=== PATIENT | male | born 1955 | race Caucasian/White ===

== ENCOUNTER 2024-12-25 14:09 | Emergency (ER) | payer MEDICARE, MEDICAID, SELFPAY ==
--- NOTE | 2024-12-25 14:18 | EKG_ITS ---
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
--- NOTE | 2024-12-25 14:18 | XR_ITS ---
Examination: AP chest single view Technique: Sitting AP portable chest single view Date and time: December 25, 2024, 1431 hrs. Indications: Chest pain shortness of breath beginning 2 days ago. Findings: Normal heart size No pneumonia or pulmonary edema. Mild osteopenia Impression: No active disease.
--- NOTE | 2024-12-25 14:19 | PD.EDRME ---
Rapid Medical Screening Exam E Arrival date/time: 12/25/24 14:09 Chief Complaint: Weakness Time Seen by Provider: 12/25/24 14:24 Vital signs: Vital Signs Temperature 97.9 F 12/25/24 14:27 Pulse Rate 95 12/25/24 14:27 Respiratory Rate 18 12/25/24 14:27 Blood Pressure 133/88 H 12/25/24 14:27 Pulse Oximetry (%) 98 12/25/24 14:27 Oxygen Delivery Method Room Air 12/25/24 14:27 [facility] Narrative: Here with a 2 day history of short breathe. Has a history of STEMI. Work up initiated, medical screening exam complete.
[2024-12-25 14:27] VITALS: BP 133/88; PULSE 95; RESP 18; TEMP 36.6; O2SAT 98
[2024-12-25 15:02] LABS: Basophils # (Auto) 0.1 Thou/mm3 (0.0-0.2); Basophils % (Auto) 1 % (0-2.5); Eosinophils # (Auto) 0.1 Thou/mm3 (0.0-0.5); Eosinophils % (Auto) 1 % (0-10); Hematocrit 27.8 % (41.0-53.0); Immature Granulocytes Auto 0.15 Thou/mm3 (0.00-0.00); Lymphocytes # (Auto) 2.0 Thou/mm3 (1.0-4.8); Lymphocytes % (Auto) 14 % (10-50); Mean Corpuscular HGB Conc 30.6 g/dl (31.0-37.0); Mean Corpuscular Hemoglobin 22.7 pg (25.0-35.0); Mean Corpuscular Volume 74 fL (80-100); Monocytes # (Auto) 1.0 Thou/mm3 (0.0-0.8); Monocytes % (Auto) 7 % (0-12); Neutrophils # (Auto) 11.2 Thou/mm3 (1.8-7.7); Neutrophils % (Auto) 77 % (37-80); Nucleated Red Blood Cell # 0.03 Thou/mm3 (0.00-0.00); Nucleated Red Blood Cell % 0 /100 WBC (0); Platelet Count 508 Thou/mm3 (140-440); RDW Standard Deviation 52.2 fL (35.1-43.9); Red Blood Count 3.74 Miln/mm3 (4.50-5.90); White Blood Count 14.5 Thou/mm3 (3.8-10.6)
[2024-12-25 15:12] LABS: Hemoglobin 8.5 g/dL (13.5-16.0)
[2024-12-25 15:29] LABS: B-Type Natriuretic Peptide 126 pg/mL (0-100)
[2024-12-25 16:08] LABS: Alanine Aminotransferase 14 U/L (10-49); Albumin, Serum 3.8 gm/dL (3.4-4.8); Albumin/Globulin Ratio 1.0 (1.2-2.2); Alkaline Phosphatase 159 U/L (46-116); Anion Gap 15 (7-16); Aspartate Amino Transferase 24 U/L (0-34); BUN/Creatinine Ratio 9 Ratio (12-20); Bilirubin,Total 0.4 mg/dL (0.3-1.2); Blood Urea Nitrogen 11 mg/dL (9-23); Calcium 8.7 mg/dL (8.3-10.6); Calcium (Corrected) 8.9 mg/dL (8.5-10.1); Carbon Dioxide 18.4 mMol/L (20.0-31.0); Chloride 103 mMol/L (98-107); Creatinine (Component) 1.2 mg/dL (0.6-1.3); Globulin 3.7 gm/dL (2.3-3.5); Glucose 318 mg/dL (74-106); Magnesium 2.3 mg/dL (1.6-2.6); Osmolality,Calculated 283 (275-295); Potassium 3.4 mMol/L (3.4-5.1); Sodium 136 mMol/L (136-145); Total Protein 7.5 gm/dL (5.7-8.2); Troponin I < 0.020 ng/mL (0.0-0.045); eGFR > 60 See Note
[2024-12-25 17:14] VITALS: BP 150/90; PULSE 97; RESP 18; TEMP 36.7; O2SAT 98
--- NOTE | 2024-12-25 18:01 | PD.EDWEAK ---
ED Weakness RME/HPI General Chief complaint: Weakness Stated complaint: Weak, SOB, dizzy Time Seen by Provider: 12/25/24 14:24 Source: patient Arrival date/time: 12/25/24 14:09 Mode of arrival: ambulatory Limitations: no limitations RME / HPI RME / HPI Narrative: Here with a 2 day history of short breathe. This was much worse this morning. Has a history of STEMI. He denies abdominal pain, nausea, vomiting. Has no lower leg edema. Has had no recent travel or surgery. Has had no syncopal episodes or falls. He has no other acute complaints. Related Data Home Medications ?Medication ?Instructions ?Recorded ?Confirmed atorvastatin 80 mg tablet 80 mg PO QPM 10/25/22 06/06/23 carvedilol 3.125 mg tablet 3.125 mg PO BID 10/25/22 06/06/23 gabapentin 600 mg tablet 600 mg PO TID 10/25/22 06/06/23 glipizide 10 mg tablet 10 mg PO QDAY 10/25/22 06/06/23 lisinopril 10 mg tablet 10 mg PO QDAY 10/25/22 06/06/23 naproxen 500 mg tablet (Naprosyn) 500 mg PO BID 10/25/22 06/06/23 omeprazole 40 mg capsule,delayed 40 mg PO QDAY 10/25/22 06/06/23 release sitagliptin phosphate 50 1 tab PO BID 10/25/22 06/06/23 mg-metformin 1,000 mg tablet (Janumet) ticagrelor 90 mg tablet (Brilinta) 90 mg PO BID 10/25/22 06/06/23 aspirin 81 mg tablet,delayed 81 mg PO QDAY 04/25/23 06/06/23 release Previous Rx's ?Medication ?Instructions ?Recorded levofloxacin 750 mg tablet 750 mg PO Q24H #6 tabs 12/25/24 Allergies Allergy/AdvReac Type Severity Reaction Status Date / Time Penicillins Allergy Unknown Rash Verified 12/25/24 14:14 Review of Systems Review of Systems Systems Reviewed: All systems reviewed, normal except as documented ED Exam General Limitations: Present no limitations General appearance: Present alert and in no apparent distress Head Head exam: Present atraumatic Eye Eye exam: Present normal appearance, PERRL and EOMI ENT ENT exam: Present normal exam, normal oropharynx and mucous membranes moist Neck Neck exam: Present normal inspection, full ROM and trachea midline Chest Chest inspection: Present normal inspection and symmetric chest wall rise Respiratory Respiratory exam: Present normal lung sounds bilaterally Cardiovascular Cardiovascular exam: Present regular rate, normal rhythm and normal heart sounds Abdominal Exam Abdominal exam: Present soft and normal bowel sounds Extremities Exam Extremities exam: Present normal inspection and full ROM Back Exam Back exam: Present normal inspection and full ROM Neurological Exam Neurological exam: Present alert and oriented X3 Psychiatric Psychiatric exam: Present normal affect and normal mood Skin Skin exam: Present warm, dry, intact and normal color Course Quality Measures none Orders Category Date Time Status Bedside COVID-19 Antigen Test NOW Care 12/25/24 17:37 Active Bedside Influenza A&B Antigen Test NOW Care 12/25/24 17:[address] Screening NOW Care 12/25/24 19:[address] Screening X1 Care 12/25/24 19:41 Completed EKG (ED ONLY) *Do not use* NOW Care 12/25/24 14:[address] angio chest Stat Exams 12/25/24 19:41 Completed EKG (ED Only) Stat Exams 12/25/24 14:18 Draft XR chest 2V Stat Exams 12/25/24 14:18 Completed BNP [B-Type Natriuretic Peptide] Stat Lab 12/25/24 14:45 Completed CBC Stat Lab 12/25/24 14:45 Completed CMP [Comprehensive Metabolic Panel] Stat Lab 12/25/24 14:52 Completed D-Dimer Stat Lab 12/25/24 18:48 Completed Mag [Magnesium] Stat Lab 12/25/24 14:52 Completed Troponin I Stat Lab 12/25/24 14:52 Completed UA, C/S IF [Urinalysis, C/S if Indicated] Stat Lab 12/25/24 20:21 Completed Albuterol* Inhaler [Proventil Inhaler] Med 12/25/24 21:55 Once 2 puff INH X1 ONE Levofloxacin [Levaquin] Med 12/25/24 21:55 Once 750 mg PO X1 ONE Morphine Inj Med 12/25/24 19:41 Discontinued 2 mg IVP X1 ONE Vital Signs Vital signs: Vital Signs Temperature 97.9 F 12/25/24 14:27 Pulse Rate 95 12/25/24 14:27 Respiratory Rate 18 12/25/24 14:27 Blood Pressure 133/88 H 12/25/24 14:27 Pulse Oximetry (%) 98 12/25/24 14:27 Oxygen Delivery Method Room Air 12/25/24 14:27 Weakness MDM Narrative MDM Narrative:: Here with a 2 day history of short breathe. This was much worse this morning. Has a history of STEMI. He denies abdominal pain, nausea, vomiting. Has no lower leg edema. Has had no recent travel or surgery. Has had no syncopal episodes or falls. He has no other acute complaints. Patient's vital signs are stable and he had no significant tachypnea on exam. Lung tones are clear bilaterally. Initial workup included CBC, metabolic panel, troponin, EKG, and chest x-ray which were all unremarkable. A D-dimer was then added to the workup, this was elevated, and a CT of the chest was obtained. No pulmonary emboli was noted however a left base pneumonia was identified. Patient was started on Levaquin and given an inhaler. He was visited by our respiratory therapist who discussed pulmonary toiletry. His vital signs remained stable. I do believe he be discharged for outpatient follow-up. He agrees to follow closely with his primary clinic this following week. Continue therapies including Levaquin, albuterol MDI, and pulmonary toiletry. He was given an incentive spirometry to use. He will return as needed for any worsening emergent changes at any time. Patient data External records reviewed:: None Clinical information provided by:: patient Social determinants that could affect healthcare access:: none Patient has the following chronic illnesses:: Diabetes, hypertension How is presenting disease/condition affected by chronic disease/condition?: uneffected by Evaluation data The following diagnostics were reviewed and interpreted by me:: lab results (Patient is leukocytosis 14.5 thousand, hemoglobin is 8.5, hematocrit 27.8. D-dimer is elevated at 848. Bicarb is 18, CMP is otherwise unremarkable. Urinalysis unremarkable.) and radiology exam(s) (Chest x-ray reveals clear lungs Linessa trait, CT of the chest reveals no pulmonary emboli, however a left base pneumonia is identified.) Lab and/or radiology exams considered but not ordered:: n/a Interpretation Summary: Pneumonia Medications / Prescriptions Medications or Prescriptions considered but not ordered:: n/a Medication administrations:: Medication Administration History Discontinued Medications Morphine Sulfate (Morphine Sulf Inj 10 Mg/Ml Vial) 2 mg IVP X1 ONE Stop: 12/25/24 19:42 Last Admin: 12/25/24 20:25 Dose: 2 mg Documented By: EF Levaquin, albuterol, also provided in addition to morphine Consultations Consultation(s) initiated? (list below): No Diagnosis Weakness Differential Diagnosis: anemia, hypothyroidism and dehydration Most likely diagnosis given after review of the tests above:: Pneumonia, anemia Admission Indicated Admission indicated?: not indicated Admission Request Was there a request for admission?: No Disposition Plan Disposition Plan: Discharge Discharge Attestation Discharge Attestation: The patient and all family members were given an opportunity to ask questions and understood the discharge instructions. Discharge instructions specifically effects, indications for sooner follow up or return to the emergency department, and the expected course of current diagnosis. Patient condition: Stable Discharge Plan Plan Patient Disposition: HOME (Self Care) Patient condition on transfer: Stable Prescriptions/Referrals Prescriptions/Med Rec: New levofloxacin 750 mg tablet 750 mg PO Q24H Qty: 6 0RF No Action aspirin [Aspir-81] 81 mg Tablet,Delayed Release (Dr/Ec) 81 mg PO QDAY atorvastatin 80 mg Tablet 80 mg PO QPM glipizide 10 mg Tablet 10 mg PO QDAY Janumet 50-1,000 mg Tablet 1 tab PO BID gabapentin 600 mg Tablet 600 mg PO TID omeprazole 40 mg Capsule,Delayed Release(Dr/Ec) 40 mg PO QDAY carvedilol 3.125 mg Tablet 3.125 mg PO BID Rx Instructions: must administer with a meal/food lisinopril 10 mg Tablet 10 mg PO QDAY naproxen [Naprosyn] 500 mg Tablet 500 mg PO BID Brilinta 90 mg Tablet 90 mg PO BID Referrals: No Primary/Family,Physician [Primary Care Provider] - In 1 week Problem List Clinical Impression: Pneumonia, Anemia Patient/Caregiver Discharge Instructions Education Materials: ED Pneumonia (Adult) Additional Instructions: - Use the provided antibiotic as prescribed. - Use the provided inhaler every 4-6 hours for shortness of breath and also for pulmonary toiletry. - It is important that he take deep breaths is much as possible, use the provided incentive spirometry. -Please follow-up closely with your primary clinic this upcoming week for close follow-up. You will need your labs rechecked. - Return as needed for any worsening or emergent changes. Print Language: Uzbek Stand Alone Forms: Radha Award Info., Patient Portal Info Letter
[2024-12-25 18:08] VITALS: BP 147/100; PULSE 101; RESP 18; TEMP 37.1; O2SAT 99
[2024-12-25 18:17] VITALS: BMI 23.7
[2024-12-25 19:30] LABS: D-Dimer 848 ng/mL (<600)
--- NOTE | 2024-12-25 19:41 | XR_ITS ---
Examination: CTA chest with intravenous contrast 2-D reconstructions 3-D reconstructions, vascular Date and time of exam: Findings, 2024, 2114 hours INDICATIONS: Onset chest pain and shortness of breath today CTDI: vol (mGy) 14 DLP: (mGycm) 607 Technique: Multiple axial sections of the thorax have been obtained. 3 mm slice thickness, from below the hemidiaphragms to above the apices of the lungs. Mediastinal and lung density settings have been obtained. 2-D sagittal and coronal reconstructions. 3-D angiographic renderings, 3-D volume renderings, 3D post processing, vascular maximum intensity projections obtained. Contrast administered is 95 cc Isovue 370 Low dose protocols were performed. One or more of the following dose reduction techniques were used; automated exposure control, adjustment of the mA and/or KV according to patient size, use of iterative reconstruction technique. Findings: No thoracic aortic aneurysm dilatation No pulmonary artery filling defects Pneumonia both lung bases more prominent left base Significant mitral valvular calcification No focal liver or splenic lesions No gallstones No pancreatic or adrenal mass 2 mm nonobstructing left renal calculus IMPRESSION: Negative for pulmonary artery emboli Bibasilar pneumonia, significant left base
[2024-12-25 20:14] VITALS: BP 180/102; PULSE 99; RESP 18; TEMP 37.2; O2SAT 97
[2024-12-25] MEDS: MORPHINE SULF INJ 10 MG/ML VIAL 2 MG IVP (20:25)
[2024-12-25 20:27] LABS: Collection Type, Urine Voided
[2024-12-25 20:43] LABS: Bilirubin,Urine Negative (Negative); Blood,Urine Negative (Negative); Clarity,Urine Clear (Clear/Hazy); Color,Urine Yellow (Lt Yel-Yel); Culture Indicated,Urine Not Indicated; Glucose, Urine 4+ (Negative); Ketones,Urine Trace (Negative); Leukocyte Esterase,Urine Negative (Negative); Nitrite,Urine Negative (Negative); PH,Urine 6.0 (5.0-7.0); Protein,Urine 1+ (Neg - Trace); RBC,Urine 2 /hpf (0-3); Specific Gravity,Urine 1.036 (1.001-1.035); Urobilinogen,Urine Negative mg/dL (0.0-1.0); WBC,Urine 2 /hpf (0-5)
[2024-12-25 20:45] LABS: Hyaline Casts,Urine 1 /hpf (0-1); Squamous Epithelial Cell,Urine 1 /hpf (0-5)
[2024-12-25 20:46] LABS: Mucus,Urine Rare /lpf
[2024-12-25] MEDS: LEVOFLOXACIN 250 MG TABLET 750 MG PO (22:15)
[2024-12-25 22:16] VITALS: BP 179/86; PULSE 104; RESP 17; TEMP 37.1; O2SAT 97
[2024-12-25] MEDS: ALBUTEROL INH 8 GM 2 PUFF INH (22:41)
[2024-12-25 22:48] VITALS: PULSE 109; RESP 19; O2SAT 98
== END 2024-12-25 22:46 | disposition home or self-care (01) ==
PROVIDERS: Physician Assistant Medical; Emergency Provider Emergency Medicine
DX: D64.9 Anemia, unspecified (principal); J18.9 Pneumonia, unspecified organism; R94.31 Abnormal electrocardiogram [ECG] [EKG]; I10 Essential (primary) hypertension; I25.2 Old myocardial infarction; Z79.02 Long term (current) use of antithrombotics/antiplatelets
CPT/HCPCS: 36415; 71046; 71275; 80053; 81001; 83735; 83880; 84484; 85025; 85379; 87400; 87502; 87811; 93005; 94640; 96374; 99285; A4649; J2270; Q9967; A9270